=== PATIENT | female | born 1995 | race Two or more races ===

== ENCOUNTER 2019-01-30 21:22 | Emergency (ER) | payer MEDICAID, OTHER ==
[~2019-01-30] VITALS: Ht 162.6 cm; Wt 70.3 kg
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
[2019-01-30] MEDS ORDERED: HYDROcodone/Acetamin 5/325 tab ORAL ONE (21:30)
[2019-01-30 21:39] VITALS: BP 117/73
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
[2019-01-30] MEDS ORDERED: IBUPROFEN600 MG ORAL (21:52)
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
--- NOTE | 2019-01-30 22:10 | NUR ---
ED Nurse Note: Pt cleared by health care Provider for discharge. DC instructions/prescription was given and explained to pt and verbalized understanding of teachings. All medical deviecs such as ID band removed. Pt is AAO x4, ambulatory and left with all personal belongings.
== END 2019-01-30 22:05 | disposition home or self-care (01) ==
LOC: EDBD 21:22 → EMR 21:33
DX: S02.2XXA Fracture of nasal bones, initial encounter for closed fracture (principal); S01.21XA Laceration without foreign body of nose, initial encounter; Y04.2XXA Assault by strike against or bumped into by another person, initial encounter
CPT/HCPCS: 12011; 70160; 99283; Z7502